=== PATIENT | male | born 1995 | race Caucasian/White ===

== ENCOUNTER 2017-08-29 02:04 | Emergency (ER) | payer OTHER ==
[2017-08-29 02:13] VITALS: TEMP 36.4; Ht 172.7 cm
[2017-08-29] MEDS ORDERED: ONDANSETRON 4MG OD TAB ONE (02:32)
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
[2017-08-29 05:30] VITALS: BP 112/65; PULSE 93; O2SAT 96
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
== END 2017-08-29 05:33 | disposition home or self-care (01) ==
LOC: C.EDB 02:06
DX: S00.33XA Contusion of nose, initial encounter (principal); S00.432A Contusion of left ear, initial encounter; S09.90XA Unspecified injury of head, initial encounter; Y04.0XXA Assault by unarmed brawl or fight, initial encounter; F10.929 Alcohol use, unspecified with intoxication, unspecified; R03.0 Elevated blood-pressure reading, without diagnosis of hypertension; F17.200 Nicotine dependence, unspecified, uncomplicated; Z88.2 Allergy status to sulfonamides; Z91.041 Radiographic dye allergy status